=== PATIENT | male | born 1955 | race Caucasian/White ===

== ENCOUNTER 2017-04-30 01:13 | Emergency (ER) | payer BC ==
[~2017-04-30] VITALS: Ht 162.6 cm; Wt 80.7 kg
--- NOTE | 2017-04-30 01:41 | PHYS DOC ---
Adult General Chief Complaint Chief Complaint: FLANK PAIN HPI HPI Patient is a 61 year old male who presents with fine pain. 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 States he got nauseated and had dry heaves. Denies any testicular pain, he denies any abdominal pain other than the pain in his left flank that doesn't radiate at this time. He denies any medications or allergies medications. He states he's never had a kidney stone before. Review of Systems Review of Systems Constitutional: Denies fever or chills [] Eyes: Denies change in visual acuity, redness, or eye pain [] HENT: Denies nasal congestion or sore throat [] Respiratory: Denies cough or shortness of breath [] Cardiovascular: No additional information not addressed in HPI [] GI: Denies abdominal pain, nausea, vomiting, bloody stools or diarrhea, positive for left-sided flank pain : Denies dysuria or hematuria [] Musculoskeletal: Denies back pain or joint pain [] Integument: Denies rash or skin lesions [] Neurologic: Denies headache, focal weakness or sensory changes [] Endocrine: Denies polyuria or polydipsia [] Current Medications Current Medications Current Medications Medications (Trade) Dose Ordered Sig/Peggy Start Time Stop Time Status Last Admin Dose Admin Ketorolac Tromethamine (Toradol) 30 mg 1X ONCE 04/30/17 03:00 04/30/17 03:09 DC 04/30/17 03:02 30 MG Sodium Chloride 1,000 ml @ 1,000 mls/hr 1X ONCE 04/30/17 03:00 04/30/17 03:59 04/30/17 03:03 1,000 MLS/HR Tamsulosin HCl (Flomax) 0.4 mg 1X ONCE 04/30/17 03:00 04/30/17 03:09 DC 04/30/17 03:02 0.4 MG Allergies Allergies Allergies Coded Allergies Type Severity Reaction Last Updated Verified No Known Drug Allergies 04/30/17 No Physical Exam Physical Exam Constitutional: Well developed, well nourished, no acute distress, non-toxic appearance. [] HENT: Normocephalic, atraumatic, bilateral external ears normal, oropharynx moist, no oral exudates, nose normal. [] Eyes: PERRLA, EOMI, conjunctiva normal, no discharge. [] Neck: Normal range of motion, no tenderness, supple, no stridor. [] Cardiovascular:Heart rate regular rhythm, no murmur [] Lungs & Thorax: Bilateral breath sounds clear to auscultation [] Abdomen: Bowel sounds normal, soft, no tenderness, no masses, no pulsatile masses. [] Skin: Warm, dry, no erythema, no rash. [] Back: No tenderness, no CVA tenderness. [] Extremities: No tenderness, no cyanosis, no clubbing, ROM intact, no edema. [] Neurologic: Alert and oriented X 3, normal motor function, normal sensory function, no focal deficits noted. [] Psychologic: Affect normal, judgement normal, mood normal. [] Current Patient Data Vital Signs Vital Signs Date Time Temp Pulse Resp B/P (MAP) Pulse Ox O2 Delivery O2 Flow Rate FiO2 04/30/17 01:20 98.2 75 16 172/90 (117) 95 Room Air 98.2 Lab Values Laboratory Tests Test 04/30/17 01:20 White Blood Count 8.8 x10^3/uL (4.0-11.0) Red Blood Count 4.65 x10^6/uL (4.30-5.70) Hemoglobin 14.7 g/dL (13.0-17.5) Hematocrit 42.4 % (39.0-53.0) Mean Corpuscular Volume 91 fL (79-100) Mean Corpuscular Hemoglobin 32 pg (25-35) Mean Corpuscular Hemoglobin Concent 35 g/dL (31-37) Red Cell Distribution Width 12.8 % (11.5-14.5) Platelet Count 144 x10^3/uL (140-400) Neutrophils (%) (Auto) 68 % (31-73) Lymphocytes (%) (Auto) 22 % (24-48) L Monocytes (%) (Auto) 8 % (0-9) Eosinophils (%) (Auto) 2 % (0-3) Basophils (%) (Auto) 1 % (0-3) Neutrophils # (Auto) 5.9 x10^3uL (1.8-7.7) Lymphocytes # (Auto) 2.0 x10^3/uL (1.0-4.8) Monocytes # (Auto) 0.7 x10^3/uL (0.0-1.1) Eosinophils # (Auto) 0.2 x10^3/uL (0.0-0.7) Basophils # (Auto) 0.0 x10^3/uL (0.0-0.2) Urine Collection Type Unknown Urine Color Alondra Urine Clarity Clear Urine pH 5.5 Urine Specific [place] >=1.030 Urine Protein 100 mg/dL (NEG-TRACE) Urine Glucose (UA) 100 mg/dL (NEG) Urine Ketones (Stick) Negative mg/dL (NEG) Urine Blood Large (NEG) Urine Nitrite Negative (NEG) Urine Bilirubin Negative (NEG) Urine Urobilinogen Dipstick 1.0 mg/dL (0.2 mg/dL) Urine Leukocyte Esterase Negative (NEG) Urine RBC 20-40 /HPF (0-2) Urine WBC 1-4 /HPF (0-4) Urine Squamous Epithelial Cells Occ /LPF Urine Bacteria 0 /HPF (0-FEW) Urine Hyaline Casts Moderate /HPF Urine Mucus Mod /LPF Sodium Level 140 mmol/L (136-145) Potassium Level 3.5 mmol/L (3.5-5.1) Chloride Level 103 mmol/L (98-107) Carbon Dioxide Level 31 mmol/L (21-32) Anion Gap 6 (6-14) Blood Urea Nitrogen 14 mg/dL (8-26) Creatinine 1.2 mg/dL (0.7-1.3) Estimated GFR (Cockcroft-Gault) 62.0 Glucose Level 287 mg/dL (70-99) H Calcium Level 8.6 mg/dL (8.5-10.1) Total Bilirubin 0.7 mg/dL (0.2-1.0) Direct Bilirubin 0.1 mg/dL (0.0-0.2) Aspartate Amino Transferase (AST) 21 U/L (15-37) Alanine Aminotransferase (ALT) 46 U/L (16-63) Alkaline Phosphatase 72 U/L (46-116) Total Protein 7.4 g/dL (6.4-8.2) Albumin 4.0 g/dL (3.4-5.0) Laboratory Tests 04/30/17 01:20 Laboratory Tests 04/30/17 01:20 EKG EKG [] Radiology/Procedures Radiology/Procedures [facility] [address] [place] [address] IMAGING REPORT Signed PATIENT: JULIAN WHITE ACCOUNT: [id number] : 1955 LOCATION: ER AGE: 61 SEX: M EXAM STATUS: PRE ER ORD. PHYSICIAN: JERALD BRIGHT MD REASON: left flank pain PROCEDURE: CT ABDOMEN PELVIS WO CONTRAST CT scan of the abdomen and pelvis without contrast 04/30/2017 CLINICAL HISTORY: Sudden onset of severe left flank pain since earlier tonight. Technique: Unenhanced, contiguous, 0.625 mm axial sections were obtained through the abdomen and pelvis. One or more of the following individualized dose reduction techniques were utilized for this study: 1. Automated exposure control. 2. Adjustment of the mA and/or kV according to patient size. 3. Use of iterative reconstruction technique. FINDINGS: Images through the lung bases demonstrate areas of probable subsegmental atelectasis involving the left lower lobe. A 5 mm calcified granuloma is seen involving the right lower lobe. The liver, spleen, pancreas, and adrenal glands are within normal limits. A 2 mm nonobstructing calculus is seen involving the lower pole of the right kidney. Mild dilatation of the left intrarenal collecting system is seen. A 7 mm calculus is seen in the left UPJ. This is causing mild obstruction of the left collecting system. The abdominal aorta is tortuous but tapers normally. Mild scattered atherosclerotic plaque formation is seen. The gallbladder slightly contracted. No free fluid or free air is seen within the abdomen. There is no evidence of bowel obstruction. The appendix is well-visualized and is within normal limits. Images through the pelvis demonstrate the urinary bladder distended with urine. The prostate gland is enlarged likely related to BPH. Calcifications are seen within the pelvis consistent with phleboliths. Degenerative changes are seen involving lower thoracic and throughout the lumbar spine and both hips. IMPRESSION: 7 mm left UPJ calculus is seen which is causing mild obstruction of the left collecting system. Electronically signed by: Kuldeep Neely MD (04/30/2017 2:13 AM) DICTATED and SIGNED BY: KULDEEP NEELY MD DATE: 04/30/178 CC: JERALD BRIGHT MD; NON,STAFF ~ Impressions: Kidney stone Course & Med Decision Making Course & Med Decision Making Pertinent Labs and Imaging studies reviewed. (See chart for details) She has a case on the left. He was given Toradol, Flomax, IV fluids and return also elected to go home and follow-up with urologist up there. He is instructed to follow up with primary care physician's well. He is instructed to strain his urine. He is being discharged with pain meds that he is to use when he is not driving, he is instructed not to drive and take these. She also being discharged with Flomax. And a strainer. Return precautions given his agreeable to the plan and being discharged in stable condition this time. Dragon Disclaimer Dragon Disclaimer This electronic medical record was generated, in whole or in part, using a voice recognition dictation system. Departure Departure Impression: Primary Impression: Kidney stone Disposition: HOME, SELF-CARE Condition: STABLE Referrals: NON,STAFF (PCP) Patient Instructions: Kidney Stones Additional Instructions: You have a kidney stone on your left side. You will need to follow-up with urologist in [place]. He can call your primary care physician and he year she can help you obtain a urology follow-up appointment. You will need to take Flomax as instructed. You will also need to strain your urine and catch the stone passes. He will need to push fluids. He can also take [place] to narcotic pain medicine as needed for pain. Please don't drive or taking this medicine as it can impair judgment and make you sleepy. If you have increasing pain, uncontrolled nausea vomiting, decreased urine output or other concerns please follow-up with her primary care physician or go to the ER. Scripts Hydrocodone/Apap 5-325 (NORCO 5-325 TABLET) 1 Each Tablet 1-2 TAB PO PRN Q6HRS Y for PAIN, #20 TAB 0 Refills Prov: JERALD BRIGHT MD 04/30/17 Tamsulosin Hcl (FLOMAX) 0.4 Mg Cap.er.24h 1 CAP PO DAILY, #30 CAP 11 Refills Prov: JERALD BRIGHT MD 04/30/17 JERALD BRIGHT MD Apr 30, 2017 01:41
[2017-04-30] MEDS ORDERED: IV NORMAL SALINE 1000ML BAG 1,000 ML IV SCH (01:45)
[2017-04-30 01:46] LABS: BASO % 1 % (0-3); EOS % 2 % (0-3); HEMATOCRIT 42.4 % (39.0-53.0); HEMOGLOBIN 14.7 g/dL (13.0-17.5); LYMPH % 22 % (24-48); MEAN CORPUSCULAR HEMOGLOBIN 32 pg (25-35); MEAN CORPUSCULAR HGB CONC 35 g/dL (31-37); MEAN CORPUSCULAR VOLUME 91 fL (79-100); MONO % 8 % (0-9); NEUT % 68 % (31-73); PLATELET COUNT 144 x10^3/uL (140-400); RED BLOOD COUNT 4.65 x10^6/uL (4.30-5.70); RED CELL DISTRIBUTION WIDTH 12.8 % (11.5-14.5); WHITE BLOOD COUNT 8.8 x10^3/uL (4.0-11.0)
[2017-04-30 01:51] LABS: BILIRUBIN,URINE NEGATIVE (NEG); GLUCOSE,URINE 100 mg/dL (NEG); NITRITE,URINE NEGATIVE (NEG); PH,URINE 5.5; PROTEIN,URINE 100 mg/dL (NEG-TRACE)
[2017-04-30 01:59] LABS: CALCIUM 8.6 mg/dL (8.5-10.1); CREATININE 1.2 mg/dL (0.7-1.3); POTASSIUM 3.5 mmol/L (3.5-5.1)
[2017-04-30 02:01] LABS: BACTERIA,URINE 0 /HPF (0-FEW); RBC,URINE 20-40 /HPF (0-2); SQUAMOUS EPITHELIAL CELL,UR OCC /LPF
[2017-04-30 02:06] LABS: DIRECT BILIRUBIN 0.1 mg/dL (0.0-0.2); TOTAL BILIRUBIN 0.7 mg/dL (0.2-1.0); TOTAL PROTEIN 7.4 g/dL (6.4-8.2)
--- NOTE | 2017-04-30 02:16 | RAD ---
CT scan of the abdomen and pelvis without contrast 04/30/2017 CLINICAL HISTORY: Sudden onset of severe left flank pain since earlier tonight. Technique: Unenhanced, contiguous, 0.625 mm axial sections were obtained through the abdomen and pelvis. One or more of the following individualized dose reduction techniques were utilized for this study: 1. Automated exposure control. 2. Adjustment of the mA and/or kV according to patient size. 3. Use of iterative reconstruction technique. FINDINGS: Images through the lung bases demonstrate areas of probable subsegmental atelectasis involving the left lower lobe. A 5 mm calcified granuloma is seen involving the right lower lobe. The liver, spleen, pancreas, and adrenal glands are within normal limits. A 2 mm nonobstructing calculus is seen involving the lower pole of the right kidney. Mild dilatation of the left intrarenal collecting system is seen. A 7 mm calculus is seen in the left UPJ. This is causing mild obstruction of the left collecting system. The abdominal aorta is tortuous but tapers normally. Mild scattered atherosclerotic plaque formation is seen. The gallbladder slightly contracted. No free fluid or free air is seen within the abdomen. There is no evidence of bowel obstruction. The appendix is well-visualized and is within normal limits. Images through the pelvis demonstrate the urinary bladder distended with urine. The prostate gland is enlarged likely related to BPH. Calcifications are seen within the pelvis consistent with phleboliths. Degenerative changes are seen involving lower thoracic and throughout the lumbar spine and both hips. IMPRESSION: 7 mm left UPJ calculus is seen which is causing mild obstruction of the left collecting system. Electronically signed by: Kuldeep Neely MD (04/30/2017 2:13 AM)
[2017-04-30] MEDS ORDERED: IV NORMAL SALINE 1000ML BAG 1,000 ML IV ONE (03:00)
[2017-04-30] MEDS ORDERED: TAMSULOSIN 0.4 MG CAP.ER.24H. PO ONE (03:00)
[2017-04-30] MEDS ORDERED: KETOROLAC TROMETHAMINE 30 MG/ML INJ. IV ONE (03:00)
[2017-04-30] MEDS ORDERED: TAMS0.4C97 PO (03:44)
[2017-04-30] MEDS ORDERED: HYDR-971 PO (03:44)
[2017-04-30 03:57] VITALS: BP 164/80
== END 2017-04-30 03:59 | disposition home or self-care (01) ==
LOC: ER 01:13
DX: N20.0 Calculus of kidney (principal)
CPT/HCPCS: 36415; 74176; 80048; 80076; 81001; 85027; 96361; 96374; 99285; J1885; J7030